=== PATIENT | male | born 1970 | race Caucasian/White ===

== ENCOUNTER 2024-12-17 18:41 | Emergency (ER) | payer BC, OTHER ==
[2024-12-17] MEDS ORDERED: Sodium Chloride 0.9% 10 ML Syringe FLUSH PRN (19:54)
[2024-12-17 20:18] LABS: BASOPHILS ABSOLUTE AUTO 0.0 K/mm3 (0.0-0.2); BASOPHILS PERCENT AUTO 0.2 % (0.0-1.0); EOSINOPHILS ABSOLUTE AUTO 0.0 K/mm3 (0.0-0.4); EOSINOPHILS PERCENT AUTO 0.1 % (0.0-6.0); IMMATURE GRAN ABSOLUTE AUTO 0.06 K/mm3 (0.00-0.05); IMMATURE GRAN PERCENT AUTO 0.5 % (0.0-0.4); LYMPHOCYTES ABSOLUTE AUTO 1.4 K/mm3 (1.0-4.8); LYMPHOCYTES PERCENT AUTO 12.2 % (24.0-44.0); MEAN PLATELET VOLUME 8.9 fl (9.4-12.4); MONOCYTES ABSOLUTE AUTO 0.9 K/mm3 (0.0-0.8); MONOCYTES PERCENT AUTO 7.9 % (0.0-8.0); NEUTROPHILS ABSOLUTE AUTO 9.3 K/mm3 (1.8-7.7); NEUTROPHILS PERCENT AUTO 79.1 % (41.0-71.0); NRBC ABSOLUTE 0.00 (0.00-0.02); NRBC PERCENT 0.0 % (0.0-0.2); PLATELET COUNT,PLT 309 K/mm3 (150-400); RED BLOOD CELL COUNT 4.41 M/mm3 (4.52-5.90); WHITE BLOOD CELL COUNT,WBC 11.70 K/mm3 (3.9-11.3)
[2024-12-17 20:38] LABS: A/G RATIO 0.5 (1-2); ALANINE AMINOTRANSFERASE,ALT 70.0 U/L (16-63); ASPARTATE AMNIOTRANSFERASE,AST 69.0 U/L (15-37); BILIRUBIN TOTAL 0.6 mg/dL (0.2-1.0); BLOOD UREA NITROGEN,BUN 9.0 mg/dL (7-18); CARBON DIOXIDE,CO2 29.0 mEq/L (21-32); CHLORIDE,CL 96.0 mEq/L (98-107); CREATININE 0.8 mg/dL (0.7-1.3); EST CRCL DRUG DOSING (CG) 106.46 mL/min; ESTIMATED GFR 104.0 mL/min (>60); GLUCOSE RANDOM 104.0 mg/dL (70-99); POTASSIUM,K 3.0 mEq/L (3.5-5.1); PROTEIN TOTAL,TP 7.2 g/dl (6.4-8.2); SODIUM,NA 134.0 mEq/L (136-145)
[2024-12-17 20:41] LABS: LACTIC ACID 0.9 mmol/L (0.4-2.0)
[2024-12-17] MEDS: Sodium Chloride 0.9% 10 ML Syringe FLUSH PRN (21:05)
[2024-12-17] MEDS: Iopamidol 612 MG/ML 100 ML Bottle IVPUSH ONE (21:05)
[2024-12-17 22:47] LABS: APPEARANCE,URINE CLEAR (Clear); GLUCOSE,URINE NEGATIVE (Negative); OCCULT BLOOD,URINE NEGATIVE (Negative)
[2024-12-17 23:14] LABS: EPITHELIAL CELLS,URINE 0-5 /hpf (0-5)
[2024-12-18] MEDS: metroNIDAZOLE/Normal Saline 500 MG in Premix Bag 1 BAG IV ONE (00:25)
== END 2024-12-18 02:25 ==
LOC: JD.ED 18:41
DX: K63.2 Fistula of intestine (principal)
CPT/HCPCS: 36415; 74177; 80053; 81001; 83605; 85025; 86140; 96365; 96367; 99285; J1836; J2543; Q9967; 99284